=== PATIENT | male | born 1990 | race American Indian/Alaskan Native ===

== ENCOUNTER 2019-03-06 13:42 | Emergency (ER) | payer OTHER ==
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
[2019-03-06 14:37] VITALS: BP 111/81
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
== END 2019-03-06 19:30 | disposition home or self-care (01) ==
LOC: ED 13:42
DX: S69.91XA Unspecified injury of right wrist, hand and finger(s), initial encounter (principal); S99.912A Unspecified injury of left ankle, initial encounter; S89.92XA Unspecified injury of left lower leg, initial encounter; S69.92XA Unspecified injury of left wrist, hand and finger(s), initial encounter; F17.200 Nicotine dependence, unspecified, uncomplicated; Z21 Asymptomatic human immunodeficiency virus [HIV] infection status; Z79.899 Other long term (current) drug therapy; Y04.0XXA Assault by unarmed brawl or fight, initial encounter; Y93.89 Activity, other specified; Y92.89 Other specified places as the place of occurrence of the external cause; Y99.8 Other external cause status

== ENCOUNTER 2022-02-20 19:56 | Emergency (ER) | payer SELFPAY ==
[2022-02-20 20:17] VITALS: BP 145/91
[2022-02-20 21:10] LABS: Bacteria,Urine 1+ /HPF (Negative); Mucus,Urine FEW /HPF
[2022-02-20 21:14] LABS: Color,Urine Yellow (Yellow); WBC,Urine > 182.0 /HPF (0.0-6.0)
[2022-02-20 21:15] LABS: Bilirubin,Urine Negative (Negative); Blood,Urine Moderate (Negative); Protein,Urine <30 mg dL mg/dL (Negative); Urobilinogen,Urine < 2.0 mg/dL (<2.0)
== END 2022-02-21 22:44 | disposition left against medical advice (07) ==
LOC: ED 19:56
DX: A64 Unspecified sexually transmitted disease (principal); Z53.21 Procedure and treatment not carried out due to patient leaving prior to being seen by health care provider
CPT/HCPCS: 81001